=== PATIENT | male | born 1990 | race African-American/Black ===

== ENCOUNTER 2017-12-22 18:35 | Emergency (ER) | payer SELFPAY ==
[~2017-12-22] VITALS: Ht 172.7 cm; Wt 88.0 kg
[2017-12-22 18:59] VITALS: BP 156/92
[2017-12-22] MEDS ORDERED: HYDR-963 PO (19:29)
--- NOTE | 2017-12-22 19:29 | PHYS DOC ---
Past Medical History Past Medical History: No Pertinent History Past Surgical History: Other Alcohol Use: Occasionally Drug Use: None Adult General Chief Complaint Chief Complaint: HAND PROBLEM HPI HPI Patient is a 27 year old M who presents with right hand pain. Patient reports he punched a wall last evening. He denies other injury. Review of Systems Review of Systems Constitutional: Denies fever or chills [] Musculoskeletal: Right hand pain and swelling Integument: Denies rash. Reports abrasion over right middle MCP Neurologic: Denies focal weakness or sensory changes [] All other systems were reviewed and found to be within normal limits, except as documented in this note. Current Medications Current Medications Current Medications Medications (Trade) Dose Ordered Sig/Elly Start Time Stop Time Status Last Admin Dose Admin Acetaminophen/ Hydrocodone Bitart (Lortab 10/325) 1 tab 1X ONCE 12/22/17 19:30 12/22/17 19:31 DC 12/22/17 19:43 1 TAB Allergies Allergies Allergies Coded Allergies Type Severity Reaction Last Updated Verified No Known Drug Allergies 12/22/17 No Physical Exam Physical Exam Constitutional: Well developed, well nourished, no acute distress, non-toxic appearance. [] HENT: Normocephalic, atraumatic Eyes: PERRLA, EOMI, conjunctiva normal, no discharge. [] Neck: Normal range of motion, no tenderness, supple, no stridor. [] Skin: Warm, dry, abrasion over right middle MCP Extremities: Tenderness, swelling, ecchymosis to back of right hand Neurologic: Alert and oriented X 3, normal motor function, normal sensory function, no focal deficits noted. [] Psychologic: Affect normal, judgement normal, mood normal. [] Current Patient Data Vital Signs Vital Signs Date Time Temp Pulse Resp B/P (MAP) Pulse Ox O2 Delivery O2 Flow Rate FiO2 12/22/17 19:43 18 98 12/22/17 18:59 99.0 103 156/92 (113) Room Air 99.0 EKG EKG [] Radiology/Procedures Radiology/Procedures X-ray right hand-fracture to distal end of fifth metacarpal with displacement[] Course & Med Decision Making Course & Med Decision Making Pertinent Labs and Imaging studies reviewed. (See chart for details) Plan: Ulnar gutter splint, Lortab Rx, follow-up with [facility], return precautions reviewed Dragon Disclaimer Dragon Disclaimer This electronic medical record was generated, in whole or in part, using a voice recognition dictation system. Departure Departure Impression: Primary Impression: Fracture of fifth metacarpal bone Disposition: HOME, SELF-CARE Condition: STABLE Referrals: JAIME ALEXANDER II, MD Patient Instructions: [facility] Scripts Hydrocodone/Apap 10-325 (NORCO 10-325 TABLET) 1 Each Tablet 1 TAB PO QID, #20 TAB Prov: DASHA [employer] TELLER 12/22/17 Problem Qualifiers Primary Impression: Fracture of fifth metacarpal bone Encounter type: initial encounter Fracture type: closed Metacarpal location : neck Fracture alignment: displaced Laterality: right Qualified Codes: S62.336A - Displaced fracture of neck of fifth metacarpal bone, right hand, initial encounter for closed fracture DASHA F[employer] TELLER Dec 22, 2017 19:29
[2017-12-22] MEDS ORDERED: HYDROcodone/APAP 10/325 1 TAB TABLET PO ONE (19:30)
--- NOTE | 2017-12-23 09:10 | RAD ---
Right hand, 3 views, 12/22/2017: HISTORY: Injury, punched a wall There is a fracture of the distal fifth metacarpal at the base of the metacarpal head. There is mild volar and radial angulation of the distal fracture fragment. There is moderate overlying soft tissue swelling. No other fracture or dislocation is identified. IMPRESSION: Acute distal fifth metacarpal fracture. Electronically signed by: Sylvester Monreal MD (12/23/2017 9:06 AM) [facility]
== END 2017-12-22 20:20 | disposition home or self-care (01) ==
LOC: ER 18:35
DX: S62.336A Displaced fracture of neck of fifth metacarpal bone, right hand, initial encounter for closed fracture (principal); W22.01XA Walked into wall, initial encounter; Y93.89 Activity, other specified; Y92.89 Other specified places as the place of occurrence of the external cause; Y99.8 Other external cause status
CPT/HCPCS: 29125; 73130; 99284